=== PATIENT | male | born 1965 | race American Indian/Alaskan Native ===

== ENCOUNTER → 2017-12-13 | Outpatient (CLI) | payer BC | LOC: SLR 11:00 | PROVIDERS: ATTEND Specialist | DX: G47.33 Obstructive sleep apnea (adult) (pediatric) (principal) | CPT/HCPCS: 95810 ==

== ENCOUNTER → 2017-12-21 | Outpatient (CLI) | payer BC | LOC: SLR 11:00 | PROVIDERS: ATTEND Specialist | DX: G47.33 Obstructive sleep apnea (adult) (pediatric) (principal) | CPT/HCPCS: 95811 ==

== ENCOUNTER 2020-07-03 06:59 | Outpatient (CLI) | payer BC ==
[2020-07-03 07:43] LABS: Basophils % (Auto) 0.9 % (0.0-1.8); Eosinophils % (Auto) 0.7 % (0.0-4.3); Lymphocytes # (Auto) 1.9 K/mm3 (1.2-5.4); Lymphocytes % (Auto) 38.5 % (13.4-35.0); Mean Corpuscular HGB Conc 33 % (32-34); Mean Corpuscular Volume 89 fl (84-94); Monocytes # (Auto) 0.3 K/mm3 (0.0-0.8); Monocytes % (Auto) 6.8 % (0.0-7.3); Platelet Count 142 K/mm3 (140-440); Red Cell Distribution Width 13.7 % (13.2-15.2)
[2020-07-03 07:46] LABS: ABG Base Excess 3.1 mmol/L (-2.0-3.0); ABG HCO3 27.6 mmol/L (20.0-26.0); ABG Methemoglobin 0.4 % (0.0-1.5); ABG Oxygen Saturation 97.2 % (95.0-99.0); ABG PCO2 41.8 mm Hg; ABG PH 7.438 pH Units (7.350-7.450); ABG PO2 89.9 mm Hg (80.0-90.0)
[2020-07-03 08:12] LABS: Alanine Aminotransferase 19 units/L (7-56); Albumin 4.1 g/dL (3.9-5); BUN/Creatinine Ratio 15; Blood Urea Nitrogen 12 mg/dL (9-20); Calcium 9.8 mg/dL (8.4-10.2); Chol/HDL Ratio 3.07 %; HDL Cholesterol 63 mg/dL (40-59); Hemolysis Index 5; LDL Cholesterol,Direct 136 mg/dL (50-130)
--- NOTE | 2020-07-03 08:35 | XRay Report ---
CHEST 2 VIEWS INDICATION: CHRONIC COUGH. COMPARISON: None FINDINGS: Support devices: None. Heart: Within normal limits. Lungs/pleura: No acute air space or interstitial disease. No pneumothorax. Few scattered calcified g ranulomas in the right lung are noted. Additional findings: None. IMPRESSION: Unremarkable chest films. Signer Name: Francisco Jansen Jr, MD Signed: 07/03/2020 8:31 AM Workstation Name: [id number]
--- NOTE | 2020-07-03 08:40 | Fluoroscopy Report ---
UPPER GI HISTORY: CHRONIC COUGH/POSSIBLE ACID REFLUX. TECHNIQUE: Single and double contrast barium technique utilized to evaluate the esophagus, stomach, and duodenal C-loop. FINDINGS: To begin the exam, swallowing was evaluated in the lateral position under direct fluorosco py. Swallowing was normal. No mucosal irregularity, mass, mass effect, or critical stenosis. There were no abnormal tertiary c ontractions as seen with dysmotility. A small to medium hiatal hernia was seen throughout this exam. Multiple episodes of gastroesophageal reflux to the midesophagus were also witnessed. The patient was asymptomatic during these episodes. Gastric sleeve surgical changes are noted and intact. No ulceration, obstruction or mucosal thickenin g. The duodenal bulb and duodenal sweep are within normal limits. IMPRESSION: Small to medium hiatal hernia with multiple episodes of gastroesophageal reflux to the m idesophagus. Fluoroscopic time: 2.2 minutes Number of fluoroscopic images: 23 Signer Name: Francisco Jansen Jr, MD Signed: 07/03/2020 8:35 AM Workstation Name: [id number]
== END 2020-07-03 07:00 | disposition home or self-care (01) ==
LOC: FLUORO 06:59
PROVIDERS: ATTEND Internal Medicine
DX: K21.9 Gastro-esophageal reflux disease without esophagitis (principal); K44.9 Diaphragmatic hernia without obstruction or gangrene; G47.33 Obstructive sleep apnea (adult) (pediatric); E66.01 Morbid (severe) obesity due to excess calories; I10 Essential (primary) hypertension; E11.9 Type 2 diabetes mellitus without complications; J30.9 Allergic rhinitis, unspecified; J20.9 Acute bronchitis, unspecified
CPT/HCPCS: 36415; 36600; 71046; 74246; 80053; 80061; 82785; 82803; 84436; 84443; 85025